=== PATIENT | male | born 1945 | race Caucasian/White ===

== ENCOUNTER 2020-09-09 12:06 | Inpatient (IN) | payer OTHER ==
[~2020-09-09] VITALS: Ht 182.9 cm; Wt 95.7 kg
[2020-09-09 12:45] LABS: BASOPHILS % (AUTO) 0.4 % (0.0-2.0); HEMATOCRIT 47.5 % (36.7-47.1); HEMOGLOBIN 16.1 g/dL (12.5-16.3); LYMPHOCYTES % (AUTO) 10.4 % (20.5-51.5); MEAN CORPUSCULAR HEMOGLOBIN 30.3 uug (23.8-33.4); MEAN CORPUSCULAR HGB CONC 34 g/dL (32.5-36.3); MEAN CORPUSCULAR VOLUME 89.3 fL (73.0-96.2); MONOCYTES # (AUTO) 0.5 K/uL (2.0-10.0); MONOCYTES % (AUTO) 4.7 % (0.0-11.0); NEUTROPHILS # (AUTO) 8.3 K/uL (1.8-8.9); NEUTROPHILS % (AUTO) 84.5 % (38.5-71.5); PLATELET COUNT (AUTO) 117 K/uL (152-348); RED BLOOD CELL COUNT(AUTO) 5.32 MIL/uL (4.06-5.63); WHITE BLOOD COUNT (AUTO) 9.9 K/uL (3.6-10.2)
[2020-09-09 12:50] LABS: CREATININE 1.3 mg/dL (0.6-1.3); POTASSIUM 4.1 mmol/L (3.5-5.1)
[2020-09-09 13:28] LABS: BILIRUBIN,TOTAL 0.8 mg/dL (0.2-1.0); TOTAL PROTEIN, SERUM 7.5 g/dL (6.4-8.2)
[2020-09-09] MEDS ORDERED: IV NORMAL SALINE 1000 ML BAG IV ONE (13:45)
[2020-09-09] MEDS ORDERED: DEXAMETHASONE SOD PHOSPHATE 4 MG INJ IV ONE (14:30)
[2020-09-09] MEDS ORDERED: DEXAMETHASONE SOD PHOSPHATE 10 MG INJ ONE (14:49)
--- NOTE | 2020-09-09 15:10 | NUR ---
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 Pt ok to admit to Tele dx: Briseyda KEANE +
[2020-09-09] MEDS ORDERED: ACETAMINOPHEN 325 MG TABLET PO PRN (15:15)
[2020-09-09] MEDS ORDERED: ALBUTEROL SULFATE 8 GM HFA.AER.AD IH PRN (15:15)
[2020-09-09] MEDS ORDERED: ACETAMINOPHEN 650 MG SUPP.RECT RC PRN (15:15)
[2020-09-09] MEDS ORDERED: ONDANSETRON 4 MG/2 ML VIAL IV PRN (15:15)
[2020-09-09] MEDS ORDERED: IV NS 1000 ML 1,000 ML IV PRN (15:30)
--- NOTE | 2020-09-09 16:00 | NUR ---
Belongings accounted for
--- NOTE | 2020-09-09 17:00 | NUR ---
Pt on Isolation precautions Pt on fall precautions Monitored accordingly Report givewn to Matt Ortiz.
--- NOTE | 2020-09-09 17:21 | NUR ---
[facility]HELLE [facility]
[2020-09-09] MEDS: AZITHROMYCIN IV 500 MG in IV DEXTROSE 5% 250 ML IV SCH (17:38)
[2020-09-09] MEDS: DEXAMETHASONE SOD PHOSPHATE 4 MG INJ IV SCH (17:38)
[2020-09-09] MEDS: APIXABAN 5 MG TABLET PO SCH (17:40)
--- NOTE | 2020-09-09 18:00 | NUR ---
Received in bed asleep arousable to name, AOx4, on O2 @ 2L, denied SOB or distress at this time. On tele AV pacing, HR-130-140, denied chest pain, dizziness and palpitations. Oriented to room and unit policy. IV on left AC flushed and patent. Safety precaution in place. No other complaints at this time
[2020-09-09 18:43] VITALS: BP 126/78
--- NOTE | 2020-09-09 20:00 | NUR ---
Received patient in bed. AAOx4. No s/s of acute distress noted. Pt on 2L NC, denies SOB. ekg monitor on exhibiting afib with HR fluctuating between 110-130. Pt denies CP, dizziness, and palpitations. Left AC IV patent and in place. Bed alarm on, safety measures in place along with COVID isolation precautions. Will continue to monitor.
[2020-09-09 21:21] VITALS: BP 109/62
[2020-09-10] VITALS (7 sets, daily range): BP systolic 110–133; BP diastolic 62–79
--- NOTE | 2020-09-10 04:03 | NUR ---
Pt exhibiting uncontrolled afib on the monitor. Called epic line and awaiting return call from Dr. Merritt. Addendum: 09/10/20 at 0455 by DAVID REECE RN second attempt, paged on-call awaiting response. Pt denies chest pain, palpitations, and dizziness. BP 140/77
--- NOTE | 2020-09-10 06:45 | NUR ---
Pt slept well. Afebrile. AAOx3. No s/s of acute distress noted. Pt on 2L NC, Denies SOB and CP. 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 Pt denies CP, dizziness, and palpitations. Left AC IV patent and intact. Safety measures and covid isolation precautions in place. will endorse to oncoming staff
[2020-09-10 07:45] LABS: BASOPHILS % (AUTO) 0.2 % (0.0-2.0); HEMATOCRIT 42.2 % (36.7-47.1); HEMOGLOBIN 14.2 g/dL (12.5-16.3); LYMPHOCYTES # (AUTO) 0.6 K/uL (20.0-40.0); LYMPHOCYTES % (AUTO) 16.6 % (20.5-51.5); MEAN CORPUSCULAR HGB CONC 34 g/dL (32.5-36.3); MEAN CORPUSCULAR VOLUME 89.5 fL (73.0-96.2); MONOCYTES # (AUTO) 0.2 K/uL (2.0-10.0); MONOCYTES % (AUTO) 6.4 % (0.0-11.0); NEUTROPHILS # (AUTO) 2.8 K/uL (1.8-8.9); NEUTROPHILS % (AUTO) 76.8 % (38.5-71.5); PLATELET COUNT (AUTO) 112 K/uL (152-348); RED BLOOD CELL COUNT(AUTO) 4.71 MIL/uL (4.06-5.63); WHITE BLOOD COUNT (AUTO) 3.6 K/uL (3.6-10.2)
[2020-09-10 08:04] LABS: BILIRUBIN,TOTAL 0.6 mg/dL (0.2-1.0); CREATININE 1.1 mg/dL (0.6-1.3); POTASSIUM 4.7 mmol/L (3.5-5.1); TOTAL PROTEIN, SERUM 6.5 g/dL (6.4-8.2)
[2020-09-10] MEDS ORDERED: DILTIAZEM HCL CD 120 MG CAP.SR.24H PO SCH (09:00)
[2020-09-10] MEDS: DEXAMETHASONE SOD PHOSPHATE 4 MG INJ IV SCH (09:12)
[2020-09-10] MEDS: APIXABAN 5 MG TABLET PO SCH ×2 (09:19→17:05)
[2020-09-10] MEDS: SODIUM BICARBONATE 8.4% 50 MEQ in IV D5 1/2 NS 1000 ML 1,000 ML IV PRN (12:02)
--- NOTE | 2020-09-10 13:44 | NUR ---
SEEN BY PHYSICAL THERAPY. TOLERATED THERAPY WELL. CURRENTLY ON ROOM AIR. DENIES PAIN OR SOB. NO S/S OF DISTRESS NOTED.
[2020-09-10] MEDS: AZITHROMYCIN IV 500 MG in IV DEXTROSE 5% 250 ML IV SCH (16:54)
[2020-09-10] MEDS ORDERED: DILTIAZEM HCL 25 MG IV IV ONE (21:30)
--- NOTE | 2020-09-10 22:00 | NUR ---
received report from yaw , received patient awake , oriented , able to follow command on RA, denies distress, iv with sodium bicarb running at 50 ml , HR 129 . bp of 117 / 79 oxygen saturation of 99 % , temp of 97.8, RR OF 23 , IV intact on lac, continent of urine
--- NOTE | 2020-09-10 22:05 | NUR ---
Patient transferred to CCU in care of ROMAN Lewis. Stable condition. Report given.
--- NOTE | 2020-09-10 22:50 | NUR ---
cardizem bous given , cardizem drip started at 5 mg /hr , HR 131 BP OF 123/65 . RR 23 oxygen saturation of 95 % ra
[2020-09-10] MEDS ORDERED: DILTIAZEM HCL 25 MG IV ONE ×2 (23:09→23:12)
[2020-09-10] MEDS ORDERED: DILTIAZEM HCL 50 MG IV ONE (23:12)
[2020-09-10] MEDS: DILTIAZEM HCL IV 125 MG in IV NORMAL SALINE 100 ML IV PRN (23:18)
[2020-09-11] VITALS (24 sets, daily range): BP systolic 108–137; BP diastolic 53–89
[2020-09-11] MEDS: SODIUM BICARBONATE 8.4% 50 MEQ in IV D5 1/2 NS 1000 ML 1,000 ML IV PRN ×3 (05:16→19:56)
[2020-09-11 05:19] LABS: BASOPHILS % (AUTO) 0.1 % (0.0-2.0); HEMATOCRIT 40.5 % (36.7-47.1); HEMOGLOBIN 13.7 g/dL (12.5-16.3); LYMPHOCYTES # (AUTO) 0.4 K/uL (20.0-40.0); LYMPHOCYTES % (AUTO) 6.5 % (20.5-51.5); MEAN CORPUSCULAR HEMOGLOBIN 30.3 uug (23.8-33.4); MEAN CORPUSCULAR HGB CONC 34 g/dL (32.5-36.3); MEAN CORPUSCULAR VOLUME 89.7 fL (73.0-96.2); MONOCYTES # (AUTO) 0.3 K/uL (2.0-10.0); MONOCYTES % (AUTO) 5.7 % (0.0-11.0); NEUTROPHILS # (AUTO) 4.9 K/uL (1.8-8.9); NEUTROPHILS % (AUTO) 87.7 % (38.5-71.5); PLATELET COUNT (AUTO) 163 K/uL (152-348); RED BLOOD CELL COUNT(AUTO) 4.51 MIL/uL (4.06-5.63); WHITE BLOOD COUNT (AUTO) 5.6 K/uL (3.6-10.2)
--- NOTE | 2020-09-11 06:00 | NUR ---
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
[2020-09-11 06:09] LABS: MAGNESIUM 2.3 mg/dL (1.8-2.4); PHOSPHOROUS 2.2 mg/dL (2.5-4.9); POTASSIUM 3.7 mmol/L (3.5-5.1)
--- NOTE | 2020-09-11 07:30 | NUR ---
titrate down cardizem drip while continuing po cardizem per doctor freddy.
--- NOTE | 2020-09-11 07:35 | NUR ---
dr hayes baker test made aware cardizem iv has been stopped due to no iv line , waiting for picc / mid line nurse , patient gets a oral cardizem
[2020-09-11] MEDS: DEXAMETHASONE SOD PHOSPHATE 4 MG INJ IV SCH (08:13)
[2020-09-11] MEDS: APIXABAN 5 MG TABLET PO SCH ×2 (08:46→16:54)
[2020-09-11] MEDS ORDERED: DILTIAZEM HCL CD 120 MG CAP.SR.24H PO SCH (09:00)
--- NOTE | 2020-09-11 09:00 | NUR ---
DR SAUCEDA IN UNIT TO SEE PATIENT.
[2020-09-11] MEDS ORDERED: REMDESIVIR (CHARGED) 200 MG in IV NORMAL SALINE 210 ML IV ONE (13:00)
--- NOTE | 2020-09-11 14:00 | NUR ---
nephro came for consultation.
[2020-09-11] MEDS: DILTIAZEM HCL IV 125 MG in IV NORMAL SALINE 100 ML IV PRN (14:06)
[2020-09-11] MEDS: CEFTRIAXONE 1 G in IV DEXTROSE 5% 50 ML IV SCH (15:03)
--- NOTE | 2020-09-11 16:00 | NUR ---
KESHIA LOCKHART CONSULTATION FOR ID. PLEASE SEE ORDER HISTORY FOR NEW ORDERS. PATIENT WILL START ON REMEDESIVIR.
[2020-09-11] MEDS: AZITHROMYCIN IV 500 MG in IV DEXTROSE 5% 250 ML IV SCH (16:53)
--- NOTE | 2020-09-11 18:15 | NUR ---
DOCTOR LYDIA TO CALL IN AM AND WILL ORDER PHOS REPLACEMENT AND BLOOD SUGAR CHECKS LATER BUT IS AWARE.
[2020-09-11] MEDS ORDERED: POTASSIUM PHOSPHATE MM 7.5 MMOL in IV NORMAL SALINE 97.5 ML IV ONE (19:00)
[2020-09-11] MEDS: DILTIAZEM HCL CD 120 MG CAP.SR.24H PO SCH (20:02)
[2020-09-12] VITALS (11 sets, daily range): BP systolic 103–142; BP diastolic 59–85
[2020-09-12 05:55] LABS: BASOPHILS % (AUTO) 0.1 % (0.0-2.0); HEMATOCRIT 37.8 % (36.7-47.1); HEMOGLOBIN 12.9 g/dL (12.5-16.3); LYMPHOCYTES # (AUTO) 0.7 K/uL (20.0-40.0); LYMPHOCYTES % (AUTO) 16.8 % (20.5-51.5); MEAN CORPUSCULAR HEMOGLOBIN 30.7 uug (23.8-33.4); MEAN CORPUSCULAR HGB CONC 34 g/dL (32.5-36.3); MEAN CORPUSCULAR VOLUME 89.7 fL (73.0-96.2); MONOCYTES # (AUTO) 0.4 K/uL (2.0-10.0); MONOCYTES % (AUTO) 11.4 % (0.0-11.0); NEUTROPHILS # (AUTO) 2.8 K/uL (1.8-8.9); NEUTROPHILS % (AUTO) 71.7 % (38.5-71.5); PLATELET COUNT (AUTO) 171 K/uL (152-348); RED BLOOD CELL COUNT(AUTO) 4.21 MIL/uL (4.06-5.63)
[2020-09-12 06:47] LABS: BILIRUBIN,DIRECT 0.2 mg/dL (0.0-0.2); BILIRUBIN,TOTAL 0.6 mg/dL (0.2-1.0); CREATININE 0.8 mg/dL (0.6-1.3); POTASSIUM 3.8 mmol/L (3.5-5.1); TOTAL PROTEIN, SERUM 6.4 g/dL (6.4-8.2)
--- NOTE | 2020-09-12 07:35 | NUR ---
Telphone report given to attending M.D. orders to downgrade pt. to telemetry received.
--- NOTE | 2020-09-12 08:00 | NUR ---
Telephone report given to Arturo White. 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 Patient left AAOx4.
[2020-09-12] MEDS: DEXAMETHASONE SOD PHOSPHATE 4 MG INJ IV SCH (09:00)
[2020-09-12] MEDS: DILTIAZEM HCL CD 240 MG CAP.SR.24H PO SCH (09:00)
[2020-09-12] MEDS: APIXABAN 5 MG TABLET PO SCH ×2 (09:00→17:45)
[2020-09-12 11:34] LABS: MAGNESIUM 2.4 mg/dL (1.8-2.4); PHOSPHOROUS 3.1 mg/dL (2.5-4.9)
[2020-09-12] MEDS: CEFTRIAXONE 1 G in IV DEXTROSE 5% 50 ML IV SCH (13:14)
[2020-09-12] MEDS: REMDESIVIR (CHARGED) 100 MG in IV NORMAL SALINE 230 ML IV SCH (14:05)
[2020-09-12] MEDS: METOPROLOL TARTRATE 25 MG TABLET PO SCH ×2 (14:45→21:18)
[2020-09-12] MEDS: SODIUM BICARBONATE 8.4% 50 MEQ in IV D5 1/2 NS 1000 ML 1,000 ML IV PRN (14:52)
--- NOTE | 2020-09-12 15:00 | NUR ---
RECEIVED PT AWAKE, ALERT AND ORIENTEDX4. PT ON 2L NASAL CANNULA.IV INTACT. PT HAS REDNESS AND SKIN TEAR ON RIGHT HIP. SAFETY AND COMFORT PROVIDED. WILL CONTINUE TO MONITOR.
--- NOTE | 2020-09-12 15:25 | NUR ---
PT STABLE THROUGHOUT THE SHIFT. V/S STABLE ON 2L NC TOLERATING WELL. CONTROLLED AFIB 80 ON TELE MONITOR. PT CURRENTLY RECEIVING REMDEZEVIR. COMFORT CARE AND NEEDS ATTENDED. SAFETY MEASURES IN PLACE. CALL LIGHT WITHIN REACH. WILL ENDORSE TO ONCOMING NURSE.
[2020-09-12] MEDS: AZITHROMYCIN IV 500 MG in IV DEXTROSE 5% 250 ML IV SCH (16:46)
[2020-09-12] MEDS: DILTIAZEM HCL CD 120 MG CAP.SR.24H PO SCH (21:18)
[2020-09-13 00:49] VITALS: BP 121/77
[2020-09-13] MEDS: SODIUM BICARBONATE 8.4% 50 MEQ in IV D5 1/2 NS 1000 ML 1,000 ML IV PRN ×2 (03:01→18:15)
[2020-09-13] MEDS: DEXAMETHASONE SOD PHOSPHATE 4 MG INJ IV SCH (03:01)
[2020-09-13 05:53] VITALS: BP 128/65
[2020-09-13] MEDS: METOPROLOL TARTRATE 25 MG TABLET PO SCH ×3 (05:56→22:27)
--- NOTE | 2020-09-13 06:42 | NUR ---
PT IN NO ACUTE DISTRESS. IV INTACT. NASAL CANNULA ON 2L OXYGEN. PRESCRIBED MEDICATION GIVEN AND PT TOLERATED IT WELL. SAFETY AND COMFORT PROVIDED. WILL ENDORSE TO INCOMING NURSE FOR CONTINUITY OF CARE.
[2020-09-13 07:18] LABS: BASOPHILS % (AUTO) 0.1 % (0.0-2.0); HEMATOCRIT 36.5 % (36.7-47.1); HEMOGLOBIN 12.7 g/dL (12.5-16.3); LYMPHOCYTES # (AUTO) 0.4 K/uL (20.0-40.0); LYMPHOCYTES % (AUTO) 11.5 % (20.5-51.5); MEAN CORPUSCULAR HGB CONC 35 g/dL (32.5-36.3); MEAN CORPUSCULAR VOLUME 89.1 fL (73.0-96.2); MONOCYTES # (AUTO) 0.4 K/uL (2.0-10.0); MONOCYTES % (AUTO) 10.9 % (0.0-11.0); NEUTROPHILS # (AUTO) 2.9 K/uL (1.8-8.9); NEUTROPHILS % (AUTO) 77.5 % (38.5-71.5); PLATELET COUNT (AUTO) 186 K/uL (152-348); RED BLOOD CELL COUNT(AUTO) 4.09 MIL/uL (4.06-5.63); WHITE BLOOD COUNT (AUTO) 3.7 K/uL (3.6-10.2)
--- NOTE | 2020-09-13 07:30 | NUR ---
Received patient in bed awake alert and oriented times 4. No sign of distress noted at this time. No SOB noted. Patient is in Covid 19 isolation. Safety precautions in place with call light and belongings within reach. Will continue to monitor.
[2020-09-13 07:35] LABS: BILIRUBIN,DIRECT 0.2 mg/dL (0.0-0.2); BILIRUBIN,TOTAL 0.6 mg/dL (0.2-1.0); CREATININE 0.8 mg/dL (0.6-1.3); POTASSIUM 4.1 mmol/L (3.5-5.1); TOTAL PROTEIN, SERUM 6.1 g/dL (6.4-8.2)
[2020-09-13] MEDS: DILTIAZEM HCL CD 240 MG CAP.SR.24H PO SCH (08:54)
[2020-09-13] MEDS: APIXABAN 5 MG TABLET PO SCH ×2 (08:57→17:34)
[2020-09-13 11:54] VITALS: BP 131/65
[2020-09-13] MEDS: CHOLECALCIFEROL 1,000 UNIT TABLET PO SCH (12:34)
[2020-09-13] MEDS: ASCORBIC ACID 500 MG TABLET PO SCH ×2 (12:34→20:40)
[2020-09-13] MEDS: CEFTRIAXONE 1 G in IV DEXTROSE 5% 50 ML IV SCH (14:16)
--- NOTE | 2020-09-13 14:18 | NUR ---
Rocephin and Remdezivir brought to unit late by pharmacy. Will infuse and continue to monitor.
[2020-09-13] MEDS: REMDESIVIR (CHARGED) 100 MG in IV NORMAL SALINE 230 ML IV SCH (15:07)
--- NOTE | 2020-09-13 15:10 | NUR ---
Vital sign at the start of the infusion of Rem dezivir was 131/65, HR 70 and temperature is 98.2 with a pulse oximetry of 96%. At the end of infusion vital sign is 124/74 53. Patient tolerated infusion well. Will continue to monitor.
[2020-09-13 16:20] VITALS: BP 120/65
[2020-09-13] MEDS ORDERED: DEXTROSE 50% 50 ML DISP.SYRIN IV PRN (18:00)
--- NOTE | 2020-09-13 19:04 | NUR ---
Patient is resting in bed. No sign of distress noted. Gave all medications at this time. Safety precautions in place with call light and belongings within reach. Will endorse to oncoming nurse.
--- NOTE | 2020-09-13 19:05 | NUR ---
RECEIVED PT AWAKE, ALERT AND ORIENTEDX3. PT IN O ACUTE DISTRESS. IV INTACT. PT ON 2L NASAL CANNULA. SAFETY AND COMFORT PROVIDED. WILL CONTINUE TO MONITOR.
[2020-09-13 20:00] VITALS: BP 129/69
[2020-09-13] MEDS: DILTIAZEM HCL CD 120 MG CAP.SR.24H PO SCH (20:40)
[2020-09-13 23:59] VITALS: BP 129/75
[2020-09-14 04:20] VITALS: BP 118/76
[2020-09-14] MEDS: METOPROLOL TARTRATE 25 MG TABLET PO SCH ×3 (06:11→22:08)
--- NOTE | 2020-09-14 06:19 | NUR ---
PT SLEPT INTERMITTENTLY. PT IN NO RESPIRATORY DISTRESS. IV INTACT. PRESCRIBED MEDICATION GIVEN AND PT TOLERATED IT WELL. PT AFEBRILE. PT PICC LINE -2 LUMEN IS HARD TO FLUSH WHILE THE ONLY ONE IS FLUSHING WELL. CHARGE NURSE AWARE. SAFETY AND COMFORT PROVIDED. ALL NEEDS ARE MET. WILL ENDORSE TO INCOMING NURSE FOR CONTINUITY OF CARE.
[2020-09-14] MEDS: BLOOD SUGAR DIAGNOSTIC 1 EACH STRIP VI SCH ×4 (06:40→20:28)
[2020-09-14] MEDS: SODIUM BICARBONATE 8.4% 50 MEQ in IV D5 1/2 NS 1000 ML 1,000 ML IV PRN (06:43)
[2020-09-14 07:03] LABS: BASOPHILS % (AUTO) 0.1 % (0.0-2.0); HEMATOCRIT 34.9 % (36.7-47.1); HEMOGLOBIN 12.2 g/dL (12.5-16.3); LYMPHOCYTES # (AUTO) 0.5 K/uL (20.0-40.0); LYMPHOCYTES % (AUTO) 9.8 % (20.5-51.5); MEAN CORPUSCULAR HEMOGLOBIN 31.6 uug (23.8-33.4); MEAN CORPUSCULAR HGB CONC 35 g/dL (32.5-36.3); MEAN CORPUSCULAR VOLUME 90.7 fL (73.0-96.2); MONOCYTES # (AUTO) 0.4 K/uL (2.0-10.0); MONOCYTES % (AUTO) 8.4 % (0.0-11.0); NEUTROPHILS # (AUTO) 4.1 K/uL (1.8-8.9); NEUTROPHILS % (AUTO) 81.7 % (38.5-71.5); PLATELET COUNT (AUTO) 199 K/uL (152-348); RED BLOOD CELL COUNT(AUTO) 3.85 MIL/uL (4.06-5.63)
[2020-09-14 07:29] LABS: BILIRUBIN,DIRECT 0.2 mg/dL (0.0-0.2); BILIRUBIN,TOTAL 0.6 mg/dL (0.2-1.0); CREATININE 0.7 mg/dL (0.6-1.3); PHOSPHOROUS 2.6 mg/dL (2.5-4.9); TOTAL PROTEIN, SERUM 5.9 g/dL (6.4-8.2)
[2020-09-14] MEDS: INSULIN REGULAR, HUMAN 300 UNIT/3 ML VIAL SQ PRN ×3 (08:39→17:22)
[2020-09-14] MEDS: CHOLECALCIFEROL 1,000 UNIT TABLET PO SCH (09:20)
[2020-09-14] MEDS: ASCORBIC ACID 500 MG TABLET PO SCH ×2 (09:20→20:21)
[2020-09-14] MEDS: DILTIAZEM HCL CD 240 MG CAP.SR.24H PO SCH (09:21)
[2020-09-14] MEDS: DEXAMETHASONE SOD PHOSPHATE 4 MG INJ IV SCH (09:21)
[2020-09-14] MEDS: APIXABAN 5 MG TABLET PO SCH ×2 (09:24→17:22)
[2020-09-14 12:00] VITALS: BP 116/64
[2020-09-14] MEDS: CEFTRIAXONE 1 G in IV DEXTROSE 5% 50 ML IV SCH (12:28)
[2020-09-14] MEDS: REMDESIVIR (CHARGED) 100 MG in IV NORMAL SALINE 230 ML IV SCH (14:14)
--- NOTE | 2020-09-14 14:30 | NUR ---
SEEN BY PHYSICAL THERAPY. TOLERATED PHYSICAL THERAPY FAIRLY WELL.
--- NOTE | 2020-09-14 14:32 | NUR ---
TOLERATING REMDESIVIR IV INFUSION - BP 126/66, HR 83, 96% ON 2L O2. DENIES PAIN. NO S/S OF DISTRESS NOTED.
[2020-09-14 16:00] VITALS: BP 120/67
--- NOTE | 2020-09-14 19:00 | NUR ---
Received patient from AM nurse. VSS. Safety measures in place. Will continue to monitor and assess.
[2020-09-14 20:00] VITALS: BP 158/65
[2020-09-14] MEDS: DILTIAZEM HCL CD 120 MG CAP.SR.24H PO SCH (20:30)
[2020-09-14] MEDS: INSULIN GLARGINE,HUM 300 UNITS/3 ML CARTRIDGE SQ SCH (23:52)
[2020-09-15 00:58] VITALS: BP 115/61
[2020-09-15 04:45] VITALS: BP 120/65
[2020-09-15] MEDS: METOPROLOL TARTRATE 25 MG TABLET PO SCH ×3 (05:59→21:23)
--- NOTE | 2020-09-15 06:41 | NUR ---
Patient handed to AM nurse at shift change. VSS. Stable condition. No distress. Will endorse all information to AM nurse.
[2020-09-15] MEDS: BLOOD SUGAR DIAGNOSTIC 1 EACH STRIP VI SCH ×4 (06:52→21:23)
[2020-09-15 06:57] LABS: BASOPHILS % (AUTO) 1.2 % (0.0-2.0); HEMATOCRIT 37.3 % (36.7-47.1); HEMOGLOBIN 12.8 g/dL (12.5-16.3); LYMPHOCYTES # (AUTO) 0.5 K/uL (20.0-40.0); LYMPHOCYTES % (AUTO) 13.9 % (20.5-51.5); MEAN CORPUSCULAR HEMOGLOBIN 30.8 uug (23.8-33.4); MEAN CORPUSCULAR HGB CONC 34 g/dL (32.5-36.3); MEAN CORPUSCULAR VOLUME 89.9 fL (73.0-96.2); MONOCYTES # (AUTO) 0.3 K/uL (2.0-10.0); MONOCYTES % (AUTO) 6.9 % (0.0-11.0); PLATELET COUNT (AUTO) 247 K/uL (152-348); RED BLOOD CELL COUNT(AUTO) 4.15 MIL/uL (4.06-5.63); WHITE BLOOD COUNT (AUTO) 3.9 K/uL (3.6-10.2)
[2020-09-15 07:15] LABS: BILIRUBIN,DIRECT 0.2 mg/dL (0.0-0.2); BILIRUBIN,TOTAL 0.6 mg/dL (0.2-1.0); CREATININE 0.6 mg/dL (0.6-1.3); MAGNESIUM 2.1 mg/dL (1.8-2.4); PHOSPHOROUS 3.2 mg/dL (2.5-4.9); TOTAL PROTEIN, SERUM 6.1 g/dL (6.4-8.2)
[2020-09-15] MEDS: DEXAMETHASONE SOD PHOSPHATE 4 MG INJ IV SCH (08:49)
[2020-09-15] MEDS: DILTIAZEM HCL CD 240 MG CAP.SR.24H PO SCH (08:50)
[2020-09-15] MEDS: CHOLECALCIFEROL 1,000 UNIT TABLET PO SCH (08:50)
[2020-09-15] MEDS: ASCORBIC ACID 500 MG TABLET PO SCH ×2 (08:52→21:06)
[2020-09-15] MEDS: APIXABAN 5 MG TABLET PO SCH ×2 (08:52→16:47)
[2020-09-15] MEDS: INSULIN REGULAR, HUMAN 300 UNIT/3 ML VIAL SQ PRN ×4 (08:58→21:27)
[2020-09-15 12:00] VITALS: BP 118/62
--- NOTE | 2020-09-15 12:18 | NUR ---
MD ordered to evaluate if the patient able to tolerate/sustain o2 saturation even without O2 inhalation, patient instucted to try remove his O2 and evaluate his saturation , patient maintained 95% at room air, MD aware,
[2020-09-15] MEDS: CEFTRIAXONE 1 G in IV DEXTROSE 5% 50 ML IV SCH (13:27)
[2020-09-15] MEDS ORDERED: DEXA6TAB6 PO (13:50)
[2020-09-15] MEDS ORDERED: APIX5TAB PO (13:50)
[2020-09-15] MEDS ORDERED: AMOX-430 PO (13:50)
[2020-09-15] MEDS ORDERED: DILT120C87 PO (13:50)
[2020-09-15] MEDS ORDERED: Insulin Glargine,Hum SQ (13:50)
[2020-09-15] MEDS ORDERED: METO25TA6 PO (13:50)
[2020-09-15] MEDS ORDERED: INSU100V7 SQ (13:51)
[2020-09-15] MEDS: REMDESIVIR (CHARGED) 100 MG in IV NORMAL SALINE 230 ML IV SCH (15:05)
[2020-09-15 16:00] VITALS: BP 133/71
--- NOTE | 2020-09-15 18:18 | NUR ---
Patient has a discharge order on hold , since the filed to hold the DC order, patient and MD aware, no distress at this time
[2020-09-15 20:15] VITALS: BP 109/75
--- NOTE | 2020-09-15 20:25 | NUR ---
Received patient in bed .AALOX4 with O2 at 2LPM via NC saturating at 95%.No s/s of distress noted.Denies SOB or pain.Picc line on right upper arm patent and intact.Received call from Patient's ,stated her is not ready to be discharged and she further stated she will call back in A.M to talk to [facility].Proper PPE strictly observed for covid.Will continue to monitor .Call light with in reach.
[2020-09-15] MEDS: DILTIAZEM HCL CD 120 MG CAP.SR.24H PO SCH (21:22)
[2020-09-15] MEDS: INSULIN GLARGINE,HUM 300 UNITS/3 ML CARTRIDGE SQ SCH (21:27)
[2020-09-16] VITALS (8 sets, daily range): BP systolic 113–149; BP diastolic 62–77
[2020-09-16] MEDS: METOPROLOL TARTRATE 25 MG TABLET PO SCH ×3 (05:32→21:20)
[2020-09-16] MEDS: BLOOD SUGAR DIAGNOSTIC 1 EACH STRIP VI SCH ×4 (06:37→21:21)
--- NOTE | 2020-09-16 06:38 | NUR ---
Patient slept well.No acute distress noted through out the shift.Compliant with medications and care.Will endorse to oncoming shift.
[2020-09-16] MEDS: INSULIN REGULAR, HUMAN 300 UNIT/3 ML VIAL SQ PRN ×4 (08:15→21:27)
--- NOTE | 2020-09-16 09:19 | NUR ---
Patient placed on RA and saturating 94% at this time. Denied any SOB or distress, stating "I feel fine." Will continue to monitor
[2020-09-16] MEDS: CHOLECALCIFEROL 1,000 UNIT TABLET PO SCH (09:47)
[2020-09-16] MEDS: ASCORBIC ACID 500 MG TABLET PO SCH ×2 (09:47→21:20)
[2020-09-16] MEDS: DEXAMETHASONE SOD PHOSPHATE 4 MG INJ IV SCH (09:48)
[2020-09-16] MEDS: DILTIAZEM HCL CD 240 MG CAP.SR.24H PO SCH (09:48)
[2020-09-16] MEDS: APIXABAN 5 MG TABLET PO SCH ×2 (09:55→17:14)
[2020-09-16] MEDS: CEFTRIAXONE 1 G in IV DEXTROSE 5% 50 ML IV SCH (14:19)
[2020-09-16] MEDS: DILTIAZEM HCL CD 120 MG CAP.SR.24H PO SCH (21:20)
[2020-09-16] MEDS: INSULIN GLARGINE,HUM 300 UNITS/3 ML CARTRIDGE SQ SCH (21:28)
[2020-09-17 00:09] VITALS: BP 114/62
[2020-09-17 04:18] VITALS: BP 112/62
--- NOTE | 2020-09-17 05:11 | NUR ---
PATIENT IS IN BED, ASLEEP. REMAINS ON ROOM AIR, TOLERATED WELL. NO SHORTNESS OF BREATH. RESPIRATIONS EVEN AND UNLABORED. PATIENT RECEIVED ALL DUE MEDICATIONS, TOLERATED WELL. ALL NEEDS ATTENDED. WILL CONTINUE TO MONITOR PATIENT. FALL AND SAFETY PRECAUTIONS OBSERVED.
[2020-09-17] MEDS: METOPROLOL TARTRATE 25 MG TABLET PO SCH (06:31)
[2020-09-17] MEDS: BLOOD SUGAR DIAGNOSTIC 1 EACH STRIP VI SCH (06:35)
[2020-09-17 07:40] LABS: BASOPHILS % (AUTO) 0.7 % (0.0-2.0); HEMATOCRIT 34.7 % (36.7-47.1); HEMOGLOBIN 12.6 g/dL (12.5-16.3); LYMPHOCYTES # (AUTO) 0.6 K/uL (20.0-40.0); LYMPHOCYTES % (AUTO) 8.3 % (20.5-51.5); MEAN CORPUSCULAR HEMOGLOBIN 34.4 uug (23.8-33.4); MEAN CORPUSCULAR HGB CONC 36 g/dL (32.5-36.3); MONOCYTES # (AUTO) 0.3 K/uL (2.0-10.0); MONOCYTES % (AUTO) 3.9 % (0.0-11.0); NEUTROPHILS % (AUTO) 87.1 % (38.5-71.5); PLATELET COUNT (AUTO) 265 K/uL (152-348); RED BLOOD CELL COUNT(AUTO) 3.66 MIL/uL (4.06-5.63); WHITE BLOOD COUNT (AUTO) 6.9 K/uL (3.6-10.2)
[2020-09-17 08:00] VITALS: BP 107/65
[2020-09-17] MEDS: INSULIN REGULAR, HUMAN 300 UNIT/3 ML VIAL SQ PRN (08:18)
[2020-09-17 08:29] LABS: CREATININE 0.7 mg/dL (0.6-1.3); POTASSIUM 3.5 mmol/L (3.5-5.1)
[2020-09-17] MEDS: ASCORBIC ACID 500 MG TABLET PO SCH (09:45)
[2020-09-17] MEDS: CHOLECALCIFEROL 1,000 UNIT TABLET PO SCH (09:45)
[2020-09-17 09:46] VITALS: BP 107/65
[2020-09-17] MEDS: DILTIAZEM HCL CD 240 MG CAP.SR.24H PO SCH (09:46)
[2020-09-17] MEDS: DEXAMETHASONE SOD PHOSPHATE 4 MG INJ IV SCH (09:46)
[2020-09-17] MEDS: APIXABAN 5 MG TABLET PO SCH (09:53)
[2020-09-17] MEDS ORDERED: DILT240C88 PO (10:33)
[2020-09-17] MEDS ORDERED: ASCO500T21 PO (10:33)
--- NOTE | 2020-09-17 10:45 | NUR ---
Patient DC to home via ambulance, awake AOx4, very grateful for care. On RA no SOB or distress at this time. Denied any chest pain. PICC line 48cm length removed, no s/s of bleeding, tolerated well. ID bands removed. Cleaned and took picture of right hip abrasion. DC instructions with prescription given to EMT personnel. All belongings list accounted for
[2020-09-17] MEDS ORDERED: LANC-576 MC (12:23)
[2020-09-17] MEDS ORDERED: BLOO1EAC70 MC (12:23)
[2020-09-17] MEDS ORDERED: SYRI1DIS86 MC (12:23)
== END 2020-09-17 10:45 | disposition home or self-care (01) | DRG 871 ==
LOC: ER 12:06 → TELE3 15:58 → CCU 09-10 22:00 → MEDSURG3 09-12 09:13 → TELE3 09-12 18:43
PROVIDERS: ADMIT Nurse Practitioner Acute Care; ATTEND Nurse Practitioner Acute Care
PROC: XW033E5 Introduction of Remdesivir Anti-infective into Peripheral Vein, Percutaneous Approach, New Technology Group 5 (ICD-10-PCS; principal; 2020-09-11)
PROC: 02HV33Z Insertion of Infusion Device into Superior Vena Cava, Percutaneous Approach (ICD-10-PCS; 2020-09-11)
PROC: B548ZZA Ultrasonography of Superior Vena Cava, Guidance (ICD-10-PCS; 2020-09-11)
DX: A41.89 Other specified sepsis (principal); U07.1 COVID-19; J12.89 Other viral pneumonia; E43 Unspecified severe protein-calorie malnutrition; G92 Toxic encephalopathy; I21.A1 Myocardial infarction type 2; J96.01 Acute respiratory failure with hypoxia; N17.0 Acute kidney failure with tubular necrosis; M62.82 Rhabdomyolysis; E87.2 Acidosis; Q24.0 Dextrocardia; D68.69 Other thrombophilia; I48.20 Chronic atrial fibrillation, unspecified; E86.0 Dehydration; M19.90 Unspecified osteoarthritis, unspecified site; Z95.0 Presence of cardiac pacemaker; R53.1 Weakness; Z85.038 Personal history of other malignant neoplasm of large intestine; I11.0 Hypertensive heart disease with heart failure; I50.9 Heart failure, unspecified; E11.65 Type 2 diabetes mellitus with hyperglycemia; Z79.4 Long term (current) use of insulin; Z68.28 Body mass index [BMI] 28.0-28.9, adult
CPT/HCPCS: 36415; 70030-TC; 71045; 72170; 73502; 83605; 83615; 83735; 84100; 85025; 85610; 85730; 86140; 86850; 86900; 86901; 87040; 87070; 93005; A4663; G0378; J0456; J0696; J1100; J1815; J3490; J3535; J7030; J7040; J7050; J7060

== ENCOUNTER 2022-06-17 13:47 | Inpatient (IN) | payer OTHER ==
[~2022-06-17] VITALS: Ht 182.9 cm; Wt 80.3 kg
[~2022-06-17 13:47] MED LIST: APIX5TAB PO; ASCO500T21 PO; BLOO1EAC70 MC; DEXA6TAB6 PO; DILT240C88 PO; INSU100V7 SQ; LANC-576 MC; METO25TA6 PO; SYRI1DIS86 MC
[2022-06-17] MEDS ORDERED: IV NORMAL SALINE 1000 ML BAG IV ONE (14:00)
[2022-06-17 14:46] LABS: HEMATOCRIT 30.5 % (36.7-47.1); MEAN CORPUSCULAR HEMOGLOBIN 29.3 uug (23.8-33.4); MEAN CORPUSCULAR VOLUME 85.7 fL (73.0-96.2); PLATELET COUNT (AUTO) 254 K/uL (152-348)
[2022-06-17 15:00] LABS: ALANINE AMINOTRANSFERASE 27 U/L (16-63); ALKALINE PHOSPHATASE 86 U/L (50-136); ASPARTATE AMINOTRANSFERASE 10 U/L (15-37); BILIRUBIN,DIRECT 0.1 mg/dL (0.0-0.2); BILIRUBIN,TOTAL 0.6 mg/dL (0.2-1.0); CARBON DIOXIDE 19 mmol/L (21-32); CHLORIDE 105 mmol/L (98-107); CREATININE 3.1 mg/dL (0.6-1.3); GLUCOSE 252 mg/dL (74-106); POTASSIUM 3.9 mmol/L (3.5-5.1); TOTAL PROTEIN, SERUM 7.4 g/dL (6.4-8.2)
[2022-06-17] MEDS ORDERED: VANCOMYCIN 1G/D5W 200 ML PIGGYBACK IV ONE (15:00)
[2022-06-17] MEDS ORDERED: PIPERACILLIN SODIUM/TAZOBACTAM 3.375 G in IV DEXTROSE 5% 50 ML IV ONE (15:00)
[2022-06-17] MEDS ORDERED: PIPERACILLIN/TAZOBACTAM/D5W 50 ML IV ONE (15:03)
[2022-06-17 15:19] LABS: UREA NITROGEN, BLOOD 95 mg/dL (7-18)
[2022-06-17 15:23] LABS: *BILIRUBIN,URIN NEGATIVE (NEGATIVE); *BLOOD, URINE 3+ (NEGATIVE); *CLARITY,URINE SLIGHTLY CLOUDY (CLEAR); *COLOR,URINE YELLOW (YELLOW); *KETONES,URINE NEGATIVE (NEGATIVE); *UROBILINOGEN,URINE 0.2 E.U./dl (NORMAL); LEUKOCYTE ESTERASE ,URINE TRACE (NEGATIVE); NITRITE, URINE NEGATIVE (NEGATIVE); PH,URINE 5.5 (5.0-8.0); UGLUCOSE NEGATIVE (NEGATIVE)
--- NOTE | 2022-06-17 15:45 | NUR ---
Inserted muhammad catheter into patient. Urine is brown with dark brown sediment. 2500mL output. Urine sample sent to lab
[2022-06-17] MEDS ORDERED: VANCOMYCIN IV 200 ML ONE (15:53)
[2022-06-17] MEDS ORDERED: ONDANSETRON 4 MG/2 ML VIAL IV PRN (16:00)
[2022-06-17] MEDS ORDERED: DEXTROSE 50% 50 ML DISP.SYRIN IV PRN (16:00)
[2022-06-17] MEDS ORDERED: MAGNESIUM HYDROXIDE 30 ML LIQUID UDC PO PRN (16:00)
[2022-06-17] MEDS ORDERED: REMEDY ESSENTIAL ZINC PASTE 113 GM TP PRN (16:00)
[2022-06-17] MEDS ORDERED: ACETAMINOPHEN 325 MG TABLET PO PRN (16:00)
[2022-06-17] MEDS ORDERED: IV LACTATED RINGERS SOLUTION 1,000 ML BAG IV ONE (16:00)
[2022-06-17 16:24] LABS: BACTERIA,URINE FEW /HPF (NONE SEEN); RBC,URINE 20-50 /HPF (0-3); SQUAMOUS EPITHELIAL CELL,UR MANY /HPF (NONE SEEN); URINE AMORPHOUS URATE FEW /HPF
[2022-06-17] MEDS: BLOOD SUGAR DIAGNOSTIC 1 EACH STRIP VI SCH ×2 (16:30→21:45)
[2022-06-17] MEDS ORDERED: INSULIN REGULAR, HUMAN 300 UNIT/3 ML VIAL ONE (18:16)
[2022-06-17] MEDS: INSULIN REGULAR, HUMAN 300 UNIT/3 ML VIAL SQ PRN (18:19)
--- NOTE | 2022-06-17 18:54 | NUR ---
Per Dr. Merritt, patient is to be admitted to telemetry.
[2022-06-17] MEDS ORDERED: METF-440 PO (19:14)
[2022-06-17] MEDS ORDERED: POTA-194 PO (19:14)
[2022-06-17] MEDS ORDERED: DIGO125T PO (19:14)
[2022-06-17] MEDS ORDERED: ATOR20TA PO (19:14)
[2022-06-17] MEDS ORDERED: LINA5TAB PO (19:14)
[2022-06-17] MEDS ORDERED: TAMS-3 PO (19:14)
[2022-06-17] MEDS ORDERED: DILT180C66 PO (19:16)
[2022-06-17] MEDS ORDERED: TRAZ-182 PO (19:16)
[2022-06-17] MEDS ORDERED: ALLO100T PO (19:16)
[2022-06-17] MEDS ORDERED: METO100T14 PO (19:16)
[2022-06-17] MEDS ORDERED: FURO20TA4 PO (19:17)
[2022-06-17] MEDS ORDERED: FERR325T28 PO (19:17)
--- NOTE | 2022-06-17 19:30 | NUR ---
Change of shift report from Pat OWENS
[2022-06-17 20:00] VITALS: BP 128/63
--- NOTE | 2022-06-17 20:12 | NUR ---
patient will be admitted room 304 TELE
--- NOTE | 2022-06-17 20:30 | NUR ---
called 3rd floor to give report. Andrew OWENS will call back
--- NOTE | 2022-06-17 20:47 | NUR ---
report given to Andrew OWENS
[2022-06-17 21:00] VITALS: BP 128/63
[2022-06-17] MEDS ORDERED: METFORMIN HCL 500 MG TABLET PO SCH (21:00)
[2022-06-17] MEDS ORDERED: METOPROLOL TARTRATE 50 MG TABLET PO SCH ×2 (21:00→22:00)
[2022-06-17] MEDS ORDERED: METOPROLOL TARTRATE 200 MG PO SCH (21:00)
[2022-06-17] MEDS: CEFTRIAXONE 1 G in IV DEXTROSE 5% 50 ML IV SCH (21:32)
[2022-06-17] MEDS: IV NS 1000 ML 1,000 ML IV PRN (21:34)
[2022-06-17] MEDS: DILTIAZEM HCL CD 180 MG CAP.SR.24H PO SCH (21:49)
[2022-06-17] MEDS: TRAZODONE 50 MG TABLET PO SCH (21:49)
[2022-06-17] MEDS: TAMSULOSIN HCL 0.4 MG CAP.SR.24H PO SCH (21:50)
[2022-06-17] MEDS: ATORVASTATIN 20 MG TABLET PO SCH (21:52)
[2022-06-17] MEDS: APIXABAN 5 MG TABLET PO SCH (21:53)
[2022-06-17] MEDS ORDERED: GUAIFENESIN SUGAR FREE 100 MG/5 ML UDC PO PRN (23:30)
[2022-06-18] VITALS: BP 132/67
[2022-06-18 04:00] VITALS: BP 139/68
[2022-06-18 06:24] LABS: HEMATOCRIT 26.8 % (36.7-47.1); MEAN CORPUSCULAR HEMOGLOBIN 29.4 uug (23.8-33.4); MEAN CORPUSCULAR VOLUME 85.5 fL (73.0-96.2); PLATELET COUNT (AUTO) 228 K/uL (152-348)
[2022-06-18] MEDS: BLOOD SUGAR DIAGNOSTIC 1 EACH STRIP VI SCH ×4 (06:40→21:13)
[2022-06-18 06:44] LABS: CARBON DIOXIDE 23 mmol/L (21-32); CHLORIDE 114 mmol/L (98-107); CREATININE 1.7 mg/dL (0.6-1.3); GLUCOSE 186 mg/dL (74-106); MAGNESIUM 1.8 mg/dL (1.8-2.4); PHOSPHOROUS 4.2 mg/dL (2.5-4.9); POTASSIUM 3.1 mmol/L (3.5-5.1); UREA NITROGEN, BLOOD 57 mg/dL (7-18)
--- NOTE | 2022-06-18 08:00 | NUR ---
rapid afib noted. v/s 151/75 98.2 [id number]. md notified. cardio notified.
[2022-06-18] MEDS: INSULIN REGULAR, HUMAN 300 UNIT/3 ML VIAL SQ PRN ×3 (08:02→17:05)
--- NOTE | 2022-06-18 08:20 | NUR ---
md order metoprolol 50mg once addition to 100mg due at 0900. lopressor 150mg total
[2022-06-18] MEDS: DILTIAZEM HCL CD 180 MG CAP.SR.24H PO SCH ×2 (08:23→21:15)
[2022-06-18] MEDS: DIGOXIN 125 MCG TABLET PO SCH (08:23)
[2022-06-18] MEDS: FERROUS SULFATE 325 MG TABEC PO SCH ×2 (08:23→17:04)
[2022-06-18] MEDS: APIXABAN 5 MG TABLET PO SCH ×2 (08:25→17:05)
[2022-06-18] MEDS: ALLOPURINOL 100 MG TABLET PO SCH (08:25)
[2022-06-18] MEDS: POTASSIUM CHLORIDE 50 ML IV SCH ×3 (08:25→10:29)
[2022-06-18] MEDS ORDERED: METOPROLOL TARTRATE 50 MG TABLET PO ONE ×2 (09:00→09:30)
[2022-06-18] MEDS ORDERED: METOPROLOL TARTRATE 50 MG TABLET PO SCH ×3 (09:00→21:00)
[2022-06-18] MEDS ORDERED: DILTIAZEM HCL CD 240 MG CAP.SR.24H PO SCH (09:00)
[2022-06-18] MEDS ORDERED: POTASSIUM CHLORIDE 20 MEQ TAB.PRT.SR PO ONE ×2 (09:30→11:00)
[2022-06-18] MEDS: IV NS 1000 ML 1,000 ML IV PRN ×2 (10:12→23:59)
[2022-06-18 11:30] VITALS: BP 127/65
[2022-06-18 16:27] VITALS: BP 132/66
[2022-06-18] MEDS: FINASTERIDE 5 MG TABLET PO SCH (17:56)
[2022-06-18 20:00] VITALS: BP 167/51
[2022-06-18] MEDS: BENZOCAINE/MENTH/CETYLPYRD LOZENGE MM PRN (21:10)
[2022-06-18] MEDS: TRAZODONE 50 MG TABLET PO SCH (21:11)
[2022-06-18] MEDS: CEFTRIAXONE 1 G in IV DEXTROSE 5% 50 ML IV SCH (21:11)
[2022-06-18] MEDS: TAMSULOSIN HCL 0.4 MG CAP.SR.24H PO SCH (21:11)
[2022-06-18] MEDS: ATORVASTATIN 20 MG TABLET PO SCH (21:12)
[2022-06-18] MEDS: METOPROLOL TARTRATE 50 MG TABLET PO SCH (21:12)
[2022-06-18] MEDS: INSULIN REGULAR, HUMAN 300 UNITS/3 ML VIAL SQ PRN (21:48)
[2022-06-19 06:21] LABS: HEMATOCRIT 26.4 % (36.7-47.1); MEAN CORPUSCULAR HEMOGLOBIN 29.2 uug (23.8-33.4); MEAN CORPUSCULAR VOLUME 85.7 fL (73.0-96.2); PLATELET COUNT (AUTO) 268 K/uL (152-348)
[2022-06-19 06:39] LABS: CREATININE 1.2 mg/dL (0.6-1.3); POTASSIUM 3.3 mmol/L (3.5-5.1)
--- NOTE | 2022-06-19 07:30 | NUR ---
SHIFT NOTE: PT WAS GIVEN MEDICATION ORDERED NO SIGNS OF DISTRESS NOTED. PT SLEPT THROUGHOUT THE NIGHT NO C/O PAIN VOICED. PT WAS GIVEN 2 UNITS OF REG INSULIN ON FOR HS INSULIN BLOOD SUGAR IS 104 AND AM BLOOD SUGAR IS 140 WAS GIVEN 2 UNITS FOR AM BLOOD SUGAR PT DENIES PAIN WILL ENDORSE TO AM NURSE.
[2022-06-19] MEDS: BLOOD SUGAR DIAGNOSTIC 1 EACH STRIP VI SCH ×4 (07:45→21:48)
[2022-06-19] MEDS ORDERED: POTASSIUM CHLORIDE 20 MEQ TAB.PRT.SR PO ONE (08:00)
[2022-06-19 08:36] VITALS: BP 185/56
[2022-06-19] MEDS: DILTIAZEM HCL CD 180 MG CAP.SR.24H PO SCH ×2 (08:38→21:44)
[2022-06-19] MEDS: FINASTERIDE 5 MG TABLET PO SCH (08:38)
[2022-06-19] MEDS: FERROUS SULFATE 325 MG TABEC PO SCH ×2 (08:38→17:06)
[2022-06-19] MEDS: ALLOPURINOL 100 MG TABLET PO SCH (08:38)
[2022-06-19] MEDS: DIGOXIN 125 MCG TABLET PO SCH (08:38)
[2022-06-19] MEDS: METOPROLOL TARTRATE 50 MG TABLET PO SCH ×2 (08:38→21:44)
[2022-06-19] MEDS: APIXABAN 5 MG TABLET PO SCH ×2 (08:39→17:09)
--- NOTE | 2022-06-19 09:33 | NUR ---
called floor, asked for RN in charge of pt but unavailable, RN to call back radiology per Nicol
[2022-06-19] MEDS ORDERED: IOHEXOL 300MG/ML 100 ML INFUS..BTL ONE (10:24)
[2022-06-19] MEDS ORDERED: IV NORMAL SALINE 250 ML IV ONE (10:24)
[2022-06-19] MEDS ORDERED: SWABABLE VALVE TRANSFER SET EA MC ONE (10:24)
[2022-06-19 11:45] VITALS: BP 118/66
[2022-06-19] MEDS: IV NS 1000 ML 1,000 ML IV PRN (12:30)
[2022-06-19] MEDS: INSULIN REGULAR, HUMAN 300 UNIT/3 ML VIAL SQ PRN ×2 (13:00→17:10)
--- NOTE | 2022-06-19 13:00 | NUR ---
notified md regarding the result of ct scan. nno given
[2022-06-19 16:03] VITALS: BP 107/56
--- NOTE | 2022-06-19 18:00 | NUR ---
pt is awake and oriented. no acute distress noted. specialty mattress in placed. wound treatment done. fc intact and draining. urine color getting better. no sign of bleeding noted
[2022-06-19 20:00] VITALS: BP 121/55
[2022-06-19] MEDS: CEFTRIAXONE 1 G in IV DEXTROSE 5% 50 ML IV SCH (21:40)
[2022-06-19] MEDS: ATORVASTATIN 20 MG TABLET PO SCH (21:41)
[2022-06-19] MEDS: TRAZODONE 50 MG TABLET PO SCH (21:41)
[2022-06-19] MEDS: TAMSULOSIN HCL 0.4 MG CAP.SR.24H PO SCH (21:41)
[2022-06-19] MEDS: BENZOCAINE/MENTH/CETYLPYRD LOZENGE MM PRN (21:41)
[2022-06-19] MEDS: INSULIN REGULAR, HUMAN 300 UNITS/3 ML VIAL SQ PRN (21:50)
[2022-06-20 04:34] VITALS: BP 125/60
[2022-06-20] MEDS: BLOOD SUGAR DIAGNOSTIC 1 EACH STRIP VI SCH ×4 (06:15→20:13)
[2022-06-20 06:46] LABS: HEMATOCRIT 27.1 % (36.7-47.1); MEAN CORPUSCULAR HEMOGLOBIN 29.2 uug (23.8-33.4); PLATELET COUNT (AUTO) 280 K/uL (152-348)
[2022-06-20 06:56] LABS: CREATININE 1.1 mg/dL (0.6-1.3); POTASSIUM 3.3 mmol/L (3.5-5.1)
--- NOTE | 2022-06-20 08:00 | NUR ---
POTASSIUM LEVEL IS 3.3 WITH NEW ORDERS TO REPLACE AND NOTED.
[2022-06-20] MEDS: INSULIN REGULAR, HUMAN 300 UNIT/3 ML VIAL SQ PRN ×2 (08:44→11:44)
[2022-06-20] MEDS: POTASSIUM CHLORIDE 50 ML IV SCH ×4 (08:51→12:48)
[2022-06-20] MEDS: FINASTERIDE 5 MG TABLET PO SCH (08:52)
[2022-06-20] MEDS: ALLOPURINOL 100 MG TABLET PO SCH (08:52)
[2022-06-20] MEDS: FERROUS SULFATE 325 MG TABEC PO SCH ×2 (08:52→17:03)
[2022-06-20] MEDS: DIGOXIN 125 MCG TABLET PO SCH (08:52)
[2022-06-20] MEDS: DILTIAZEM HCL CD 180 MG CAP.SR.24H PO SCH ×2 (08:53→20:14)
[2022-06-20] MEDS: METOPROLOL TARTRATE 50 MG TABLET PO SCH ×2 (08:53→20:15)
[2022-06-20] MEDS: APIXABAN 5 MG TABLET PO SCH (08:54)
--- NOTE | 2022-06-20 09:00 | NUR ---
PATIENT SEEN BY THE PHYSICAL THERAPY AND HE WAS ABLE TO WALK WITH THE FRONT WHEEL WALKER IN THE HALLWAY WITH FAIR ENDURANCE AT THIS TIME.
--- NOTE | 2022-06-20 09:30 | NUR ---
SEEN BY DR SOUSA WITH ORDER TO DISCONTINUE TELEMETRY TODAY AND NOTED PATIENT IS AWAKE ALERT AND ORIENTED HE IS SOMEWHAT FORGETFUL REMAIN ON IVF ORDERED AT THIS TIME WITH NO S/S OF INFILTERATION ON SITE.TELE IS AFIB CONTROLLED.POTTER CATH WITH HOANG COLORED URINE WITH NO HEMATURIA AT THIS TIME CALL LIGHTS AND PERSOANL BELONGINGS ARE WITHIN EASY REACH WILL CONTINUE TO OBSERVE.
[2022-06-20 11:54] VITALS: BP 127/73
[2022-06-20] MEDS: GLUCERNA SHAKE 237 ML CAN PO SCH (14:15)
[2022-06-20] MEDS: PROTEIN SUPPLEMENT (PROSTAT) 30 ML LIQUID PO SCH ×2 (14:15→17:04)
--- NOTE | 2022-06-20 15:10 | NUR ---
DR CLAUDIO FORM LAYER BETH HERE TO SEE PATIENT AND EXPLAINED TO THE PATIENT THE NEXT PLAN OF CARE BUT I ENCOURAGED HER TO CALL THE PATIENTS AND PATIENT TENDS TO FORGET.
[2022-06-20 16:09] VITALS: BP 133/51
[2022-06-20] MEDS: ARGININE/GLUTAMINE/CALCIUM BMB 1 EACH POWD.PACK PO SCH (17:06)
--- NOTE | 2022-06-20 18:00 | NUR ---
RESTING PLAN IS FOR MRI OF ABDOMEN WITH CONTRAST AND CT CHEST WITH NO CONTRAST NOT IN DISTRESS AT THIS TIME WILL CONTINUE TO OBSERVE.
[2022-06-20 18:02] LABS: THYROID STIMULATING HORMONE 2.025 mIU/mL (0.358-3.740)
[2022-06-20] MEDS: CEFTRIAXONE 1 G in IV DEXTROSE 5% 50 ML IV SCH (20:00)
[2022-06-20] MEDS: TAMSULOSIN HCL 0.4 MG CAP.SR.24H PO SCH (20:13)
[2022-06-20] MEDS: ATORVASTATIN 20 MG TABLET PO SCH (20:13)
[2022-06-20] MEDS: INSULIN REGULAR, HUMAN 300 UNITS/3 ML VIAL SQ PRN (20:14)
[2022-06-20] MEDS: TRAZODONE 50 MG TABLET PO SCH (20:19)
[2022-06-20 20:44] VITALS: BP 121/58
[2022-06-21 05:05] VITALS: BP 127/51
[2022-06-21] MEDS: BLOOD SUGAR DIAGNOSTIC 1 EACH STRIP VI SCH ×4 (06:29→21:55)
[2022-06-21 07:31] LABS: HEMATOCRIT 31.6 % (36.7-47.1); MEAN CORPUSCULAR HEMOGLOBIN 29.1 uug (23.8-33.4); MEAN CORPUSCULAR VOLUME 84.7 fL (73.0-96.2); PLATELET COUNT (AUTO) 360 K/uL (152-348)
[2022-06-21 07:38] LABS: POTASSIUM 3.9 mmol/L (3.5-5.1)
[2022-06-21 08:06] LABS: *IMMUNOGLOBULIN G, SERUM 743 mg/dL (603-1613)
[2022-06-21] MEDS: DILTIAZEM HCL CD 180 MG CAP.SR.24H PO SCH ×2 (08:58→21:52)
[2022-06-21] MEDS: PROTEIN SUPPLEMENT (PROSTAT) 30 ML LIQUID PO SCH (08:58)
[2022-06-21] MEDS: BENZOCAINE/MENTH/CETYLPYRD LOZENGE MM PRN (08:58)
[2022-06-21] MEDS: GLUCERNA SHAKE 237 ML CAN PO SCH (08:58)
[2022-06-21] MEDS: ARGININE/GLUTAMINE/CALCIUM BMB 1 EACH POWD.PACK PO SCH ×2 (08:58→17:00)
[2022-06-21] MEDS: ALLOPURINOL 100 MG TABLET PO SCH (08:59)
[2022-06-21] MEDS: DIGOXIN 125 MCG TABLET PO SCH (08:59)
[2022-06-21] MEDS: FERROUS SULFATE 325 MG TABEC PO SCH ×2 (08:59→18:35)
[2022-06-21] MEDS: METOPROLOL TARTRATE 50 MG TABLET PO SCH ×2 (08:59→21:55)
[2022-06-21] MEDS: FINASTERIDE 5 MG TABLET PO SCH (08:59)
[2022-06-21 09:06] LABS: A/G RATIO 0.7 (0.7-1.7); ALBUMIN 2.1 g/dL (2.9-4.4); ALPHA-1-GLOBULIN 0.3 g/dL (0.0-0.4); ALPHA-2-GLOBULIN 0.8 g/dL (0.4-1.0); BETA GLOBULIN 1.1 g/dL (0.7-1.3); GAMMA GLOBULIN 0.7 g/dL (0.4-1.8); GLOBULIN, TOTAL 2.9 g/dL (2.2-3.9); M-SPIKE Not Observed g/dL (Not Observed)
[2022-06-21] MEDS: INSULIN REGULAR, HUMAN 300 UNIT/3 ML VIAL SQ PRN ×3 (09:43→18:35)
--- NOTE | 2022-06-21 10:46 | NUR ---
WOUND CARE CONSULT: PT PRESENTS WITH SACRAL DEEP TISSUE INJURY IN EVOLUTION, PRESENT ON ADMISSION. RECOMMENDATIONS MADE FOR SKIN PROTECTION AND WOUND CARE. DISCUSSED WITH NURSING STAFF. IN AGREEMENT WITH PLAN OF CARE. PT IS ON FIRST STEP [facility]. Addendum: 06/21/22 at 1047 by LACEY STEEN RN Amended: Links added.
[2022-06-21 12:00] VITALS: BP 128/56
[2022-06-21 12:06] LABS: CARBOHYDRATE ANTIGEN, 19-9 16 U/mL (0-35)
[2022-06-21 16:00] VITALS: BP 123/63
[2022-06-21] MEDS ORDERED: IOHEXOL 350 100 ML INFUS..BTL ONE (17:21)
[2022-06-21] MEDS ORDERED: IV NORMAL SALINE 250 ML IV ONE (17:21)
[2022-06-21] MEDS ORDERED: SWABABLE VALVE TRANSFER SET EA MC ONE (17:21)
[2022-06-21 20:00] VITALS: BP_SYST 131; BP_SYST 140; BP_DIAS 56; BP_DIAS 62
[2022-06-21] MEDS: CEFTRIAXONE 1 G in IV DEXTROSE 5% 50 ML IV SCH (20:00)
[2022-06-21] MEDS: ATORVASTATIN 20 MG TABLET PO SCH (21:52)
[2022-06-21] MEDS: TAMSULOSIN HCL 0.4 MG CAP.SR.24H PO SCH (21:52)
[2022-06-21] MEDS: TRAZODONE 50 MG TABLET PO SCH (21:52)
[2022-06-21] MEDS: INSULIN REGULAR, HUMAN 300 UNITS/3 ML VIAL SQ PRN (23:57)
[2022-06-22 04:08] VITALS: BP 114/55
[2022-06-22] MEDS: BLOOD SUGAR DIAGNOSTIC 1 EACH STRIP VI SCH ×4 (07:36→21:49)
--- NOTE | 2022-06-22 07:54 | NUR ---
SHIFT NOTED; PT IS ALERT AND ORIENTED X4 PT DENIES PAIN NO SIGNS OF RESPIRATORY DISTRESS NOTED. PT WAS GIVEN MEDICATION ORDERED TOLERATED WELL NO SIGNS OF ADVERSE REACTION NOTED. WILL CONTINUE TO MONITOR.
--- NOTE | 2022-06-22 07:56 | NUR ---
SHIFT NOTE; PT HS BLOOD SUGAR 199 GAVE 3 UNIT OF R AND AM BLOOD SUGAR 145 NO SIGNS OF DIABETIC REACTION NOTED WILL ENDORSE TO AM NURSE.
[2022-06-22] MEDS: PROTEIN SUPPLEMENT (PROSTAT) 30 ML LIQUID PO SCH (08:00)
[2022-06-22 08:10] LABS: HEMATOCRIT 31.6 % (36.7-47.1); MEAN CORPUSCULAR HEMOGLOBIN 29.8 uug (23.8-33.4); MEAN CORPUSCULAR VOLUME 84.9 fL (73.0-96.2); PLATELET COUNT (AUTO) 363 K/uL (152-348)
[2022-06-22 08:52] LABS: CREATININE 1.1 mg/dL (0.6-1.3); MAGNESIUM 1.7 mg/dL (1.8-2.4); PHOSPHOROUS 3.2 mg/dL (2.5-4.9); POTASSIUM 3.3 mmol/L (3.5-5.1)
[2022-06-22] MEDS: ARGININE/GLUTAMINE/CALCIUM BMB 1 EACH POWD.PACK PO SCH ×2 (09:16→17:13)
[2022-06-22] MEDS: FINASTERIDE 5 MG TABLET PO SCH (09:22)
[2022-06-22] MEDS: BENZOCAINE/MENTH/CETYLPYRD LOZENGE MM PRN (09:22)
[2022-06-22] MEDS: GLUCERNA SHAKE 237 ML CAN PO SCH (09:23)
[2022-06-22] MEDS: FERROUS SULFATE 325 MG TABEC PO SCH ×2 (09:23→17:00)
[2022-06-22] MEDS: ALLOPURINOL 100 MG TABLET PO SCH (09:23)
[2022-06-22] MEDS: DILTIAZEM HCL CD 180 MG CAP.SR.24H PO SCH ×2 (09:27→21:53)
[2022-06-22] MEDS: DIGOXIN 125 MCG TABLET PO SCH (09:27)
[2022-06-22] MEDS: METOPROLOL TARTRATE 50 MG TABLET PO SCH ×2 (09:28→21:45)
[2022-06-22] MEDS: POTASSIUM CHLORIDE 50 ML IV SCH ×4 (09:51→13:11)
[2022-06-22] MEDS: MAGNESIUM SULFATE/D5W 100 ML IV SCH ×2 (11:04→11:42)
[2022-06-22] MEDS: APIXABAN 5 MG TABLET PO SCH ×2 (11:06→21:49)
--- NOTE | 2022-06-22 11:12 | NUR ---
pt aox4. no complain of pain. pt eval done. pt is ambulatory with assist. md order us thyroid result still pending; if clear pt will be d/c.
[2022-06-22] MEDS: INSULIN REGULAR, HUMAN 300 UNIT/3 ML VIAL SQ PRN ×3 (11:58→21:51)
[2022-06-22 12:00] VITALS: BP 123/69
[2022-06-22 12:06] LABS: IMMUNOGLOBULIN M, SERUM 61 mg/dL (15-143)
--- NOTE | 2022-06-22 13:34 | NUR ---
WOUND TREATMENT DONE; CLEAN WITH NS; APPLY OIL EMULSION DSG; COVER WITH FOAM DRESSING
[2022-06-22 16:00] VITALS: BP 111/46
[2022-06-22 20:17] VITALS: BP 130/52
[2022-06-22] MEDS: ATORVASTATIN 20 MG TABLET PO SCH (21:45)
[2022-06-22] MEDS: TAMSULOSIN HCL 0.4 MG CAP.SR.24H PO SCH (21:45)
[2022-06-22] MEDS: TRAZODONE 50 MG TABLET PO SCH (21:53)
[2022-06-23] MEDS: FINASTERIDE 5 MG TABLET PO SCH (02:51)
[2022-06-23 04:00] VITALS: BP 126/48
[2022-06-23] MEDS: BLOOD SUGAR DIAGNOSTIC 1 EACH STRIP VI SCH ×4 (07:56→21:00)
[2022-06-23] MEDS: INSULIN REGULAR, HUMAN 300 UNIT/3 ML VIAL SQ PRN ×3 (07:57→16:38)
--- NOTE | 2022-06-23 07:57 | NUR ---
Shift Note: RECEIVED REPORT FROM AM NURSE PT IS ALERT AND ORIENTED X4 PT WAS MEDICATION ORDERED NO SIGNS OF ADVERSE REACTION ALSO PT AM BLOOD SUGAR HS BLOOD SUGAR IS 193 GAVE 3 UNITS OF R AND AM BLOOD SUGAR IS 145 AND NO SIGNS OF DIABETIC NOTED. WILL CONTINUE TO MONITOR FOR FALL AND SAFETY ENDORSE TO AM NURSE.
[2022-06-23] MEDS: METOPROLOL TARTRATE 50 MG TABLET PO SCH ×2 (08:04→20:50)
[2022-06-23] MEDS: ARGININE/GLUTAMINE/CALCIUM BMB 1 EACH POWD.PACK PO SCH ×2 (08:04→16:37)
[2022-06-23] MEDS: ALLOPURINOL 100 MG TABLET PO SCH (08:04)
[2022-06-23] MEDS: DILTIAZEM HCL CD 180 MG CAP.SR.24H PO SCH ×2 (08:04→20:50)
[2022-06-23] MEDS: DIGOXIN 125 MCG TABLET PO SCH (08:04)
[2022-06-23] MEDS: FERROUS SULFATE 325 MG TABEC PO SCH ×2 (08:04→16:37)
[2022-06-23] MEDS: GLUCERNA SHAKE 237 ML CAN PO SCH (08:05)
[2022-06-23] MEDS: PROTEIN SUPPLEMENT (PROSTAT) 30 ML LIQUID PO SCH (08:05)
[2022-06-23] MEDS: APIXABAN 5 MG TABLET PO SCH ×2 (08:05→20:59)
[2022-06-23 12:09] VITALS: BP 118/52
[2022-06-23 15:52] VITALS: BP 113/59
[2022-06-23 20:00] VITALS: BP 116/60
[2022-06-23] MEDS: TRAZODONE 50 MG TABLET PO SCH (20:50)
[2022-06-23] MEDS: TAMSULOSIN HCL 0.4 MG CAP.SR.24H PO SCH (20:50)
[2022-06-23] MEDS: ATORVASTATIN 20 MG TABLET PO SCH (20:50)
[2022-06-23] MEDS: INSULIN REGULAR, HUMAN 300 UNITS/3 ML VIAL SQ PRN (23:20)
--- NOTE | 2022-06-24 01:19 | NUR ---
RECEIVED REPORT FROM AM NURSE PT SITTING UP IN BED PT IS NPO AFTER MIDNIGHT . PT HS BLOOD SUGAR IS 155 PT WAS GIVEN 2 UNITS OF HUMULIN R NO SIGNS OF DIABETIC REACTION NOTED. WILL CONTINUE TO MONITOR FOR SAFETY
[2022-06-24 04:00] VITALS: BP 118/55
[2022-06-24] MEDS: BLOOD SUGAR DIAGNOSTIC 1 EACH STRIP VI SCH ×4 (06:40→20:41)
[2022-06-24] MEDS: DIGOXIN 125 MCG TABLET PO SCH (08:00)
[2022-06-24] MEDS: ALLOPURINOL 100 MG TABLET PO SCH (08:00)
[2022-06-24] MEDS: FINASTERIDE 5 MG TABLET PO SCH (08:00)
[2022-06-24] MEDS: FERROUS SULFATE 325 MG TABEC PO SCH ×2 (08:00→16:05)
[2022-06-24] MEDS: GLUCERNA SHAKE 237 ML CAN PO SCH (08:01)
[2022-06-24] MEDS: DILTIAZEM HCL CD 180 MG CAP.SR.24H PO SCH ×2 (08:01→20:43)
[2022-06-24] MEDS: PROTEIN SUPPLEMENT (PROSTAT) 30 ML LIQUID PO SCH (08:01)
[2022-06-24] MEDS: METOPROLOL TARTRATE 50 MG TABLET PO SCH ×2 (08:01→20:42)
[2022-06-24] MEDS: ARGININE/GLUTAMINE/CALCIUM BMB 1 EACH POWD.PACK PO SCH ×2 (08:01→16:05)
[2022-06-24] MEDS: INSULIN REGULAR, HUMAN 300 UNIT/3 ML VIAL SQ PRN (11:58)
[2022-06-24 12:00] VITALS: BP 107/49
[2022-06-24 16:00] VITALS: BP 148/61
[2022-06-24 20:00] VITALS: BP 134/69
[2022-06-24] MEDS: TRAZODONE 50 MG TABLET PO SCH (20:43)
[2022-06-24] MEDS: TAMSULOSIN HCL 0.4 MG CAP.SR.24H PO SCH (20:43)
[2022-06-24] MEDS: ATORVASTATIN 20 MG TABLET PO SCH (20:47)
[2022-06-24] MEDS: INSULIN REGULAR, HUMAN 300 UNITS/3 ML VIAL SQ PRN (21:02)
[2022-06-25 04:00] VITALS: BP 127/64
[2022-06-25] MEDS: BLOOD SUGAR DIAGNOSTIC 1 EACH STRIP VI SCH ×4 (06:23→20:48)
[2022-06-25] MEDS: INSULIN REGULAR, HUMAN 300 UNIT/3 ML VIAL SQ PRN ×4 (08:31→20:51)
[2022-06-25] MEDS: PROTEIN SUPPLEMENT (PROSTAT) 30 ML LIQUID PO SCH (08:31)
[2022-06-25] MEDS: GLUCERNA SHAKE 237 ML CAN PO SCH (08:32)
[2022-06-25] MEDS: ARGININE/GLUTAMINE/CALCIUM BMB 1 EACH POWD.PACK PO SCH ×2 (08:32→16:57)
[2022-06-25] MEDS: FERROUS SULFATE 325 MG TABEC PO SCH ×2 (08:56→16:57)
[2022-06-25] MEDS: ALLOPURINOL 100 MG TABLET PO SCH (08:57)
[2022-06-25] MEDS: DIGOXIN 125 MCG TABLET PO SCH (08:57)
[2022-06-25] MEDS: FINASTERIDE 5 MG TABLET PO SCH (08:57)
[2022-06-25] MEDS: DILTIAZEM HCL CD 180 MG CAP.SR.24H PO SCH ×2 (08:57→20:38)
[2022-06-25] MEDS: METOPROLOL TARTRATE 50 MG TABLET PO SCH ×2 (08:58→20:39)
[2022-06-25] MEDS ORDERED: DIGO125T PO (09:43)
[2022-06-25] MEDS ORDERED: APIX5TAB PO ×2 (09:43→10:01)
[2022-06-25] MEDS ORDERED: METO100T14 PO (09:43)
[2022-06-25] MEDS ORDERED: FERR325T28 PO (09:43)
[2022-06-25] MEDS ORDERED: FINA5TAB11 PO (09:43)
[2022-06-25] MEDS ORDERED: DILT180C66 PO (09:43)
[2022-06-25 12:35] VITALS: BP 109/55
[2022-06-25 15:51] VITALS: BP 102/61
--- NOTE | 2022-06-25 16:19 | NUR ---
patient is alert oriented x4, no sob, respiration are even nonlabored,skin warm and dry to touch, patient teaching provided regarding catheter care at home, demonstrated with leg bag, patient demonstrated how to change from long catheter bag to leg bag and vise verse, upon patient request.
[2022-06-25 20:09] VITALS: BP 121/55
[2022-06-25] MEDS: ATORVASTATIN 20 MG TABLET PO SCH (20:33)
[2022-06-25] MEDS: TRAZODONE 50 MG TABLET PO SCH (20:39)
[2022-06-25] MEDS: TAMSULOSIN HCL 0.4 MG CAP.SR.24H PO SCH (20:39)
[2022-06-26 04:00] VITALS: BP 113/61
[2022-06-26] MEDS: BLOOD SUGAR DIAGNOSTIC 1 EACH STRIP VI SCH ×4 (06:38→20:29)
[2022-06-26] MEDS: DILTIAZEM HCL CD 180 MG CAP.SR.24H PO SCH ×2 (08:16→20:25)
[2022-06-26] MEDS: FINASTERIDE 5 MG TABLET PO SCH (08:16)
[2022-06-26] MEDS: FERROUS SULFATE 325 MG TABEC PO SCH ×2 (08:16→17:23)
[2022-06-26] MEDS: DIGOXIN 125 MCG TABLET PO SCH (08:16)
[2022-06-26] MEDS: ALLOPURINOL 100 MG TABLET PO SCH (08:17)
[2022-06-26] MEDS: PROTEIN SUPPLEMENT (PROSTAT) 30 ML LIQUID PO SCH (08:17)
[2022-06-26] MEDS: ARGININE/GLUTAMINE/CALCIUM BMB 1 EACH POWD.PACK PO SCH ×2 (08:17→17:23)
[2022-06-26] MEDS: GLUCERNA SHAKE 237 ML CAN PO SCH (08:17)
[2022-06-26] MEDS: METOPROLOL TARTRATE 50 MG TABLET PO SCH ×2 (08:18→20:24)
[2022-06-26] MEDS: INSULIN REGULAR, HUMAN 300 UNIT/3 ML VIAL SQ PRN (11:32)
[2022-06-26 12:04] VITALS: BP 100/48
[2022-06-26 15:54] VITALS: BP 116/55
--- NOTE | 2022-06-26 18:28 | NUR ---
no events noted during shift
[2022-06-26 20:00] VITALS: BP 125/54
[2022-06-26] MEDS: ATORVASTATIN 20 MG TABLET PO SCH (20:24)
[2022-06-26] MEDS: TRAZODONE 50 MG TABLET PO SCH (20:24)
[2022-06-26] MEDS: TAMSULOSIN HCL 0.4 MG CAP.SR.24H PO SCH (20:25)
[2022-06-26] MEDS: INSULIN REGULAR, HUMAN 300 UNITS/3 ML VIAL SQ PRN (20:32)
[2022-06-27 04:00] VITALS: BP 121/60
[2022-06-27] MEDS: BLOOD SUGAR DIAGNOSTIC 1 EACH STRIP VI SCH ×4 (06:53→21:03)
[2022-06-27] MEDS: DIGOXIN 125 MCG TABLET PO SCH (09:43)
[2022-06-27] MEDS: FERROUS SULFATE 325 MG TABEC PO SCH ×2 (09:43→16:38)
[2022-06-27] MEDS: FINASTERIDE 5 MG TABLET PO SCH (09:43)
[2022-06-27] MEDS: ALLOPURINOL 100 MG TABLET PO SCH (09:43)
[2022-06-27] MEDS: GLUCERNA SHAKE 237 ML CAN PO SCH (09:44)
[2022-06-27] MEDS: DILTIAZEM HCL CD 180 MG CAP.SR.24H PO SCH ×2 (09:44→21:03)
[2022-06-27] MEDS: PROTEIN SUPPLEMENT (PROSTAT) 30 ML LIQUID PO SCH (09:44)
[2022-06-27] MEDS: ARGININE/GLUTAMINE/CALCIUM BMB 1 EACH POWD.PACK PO SCH ×2 (09:44→16:38)
[2022-06-27] MEDS: METOPROLOL TARTRATE 50 MG TABLET PO SCH ×2 (09:45→21:02)
[2022-06-27] MEDS: BENZOCAINE/MENTH/CETYLPYRD LOZENGE MM PRN (09:45)
[2022-06-27 11:31] VITALS: BP 124/61
[2022-06-27] MEDS: INSULIN REGULAR, HUMAN 300 UNIT/3 ML VIAL SQ PRN (12:20)
[2022-06-27 16:00] VITALS: BP 114/54
--- NOTE | 2022-06-27 16:00 | NUR ---
Per Catherine pt will be set up for SNF under help of pt's insurance for tomorrow.
[2022-06-27 20:00] VITALS: BP 125/58
[2022-06-27] MEDS: TRAZODONE 50 MG TABLET PO SCH (21:02)
[2022-06-27] MEDS: TAMSULOSIN HCL 0.4 MG CAP.SR.24H PO SCH (21:02)
[2022-06-27] MEDS: ATORVASTATIN 20 MG TABLET PO SCH (21:02)
[2022-06-27] MEDS: INSULIN REGULAR, HUMAN 300 UNITS/3 ML VIAL SQ PRN (21:10)
[2022-06-28 04:00] VITALS: BP 130/66
[2022-06-28] MEDS: BLOOD SUGAR DIAGNOSTIC 1 EACH STRIP VI SCH ×3 (06:37→16:24)
[2022-06-28] MEDS ORDERED: APIXABAN 5 MG TABLET PO SCH (09:00)
[2022-06-28] MEDS: BENZOCAINE/MENTH/CETYLPYRD LOZENGE MM PRN (09:50)
[2022-06-28] MEDS: FERROUS SULFATE 325 MG TABEC PO SCH ×2 (09:51→16:24)
[2022-06-28] MEDS: DILTIAZEM HCL CD 180 MG CAP.SR.24H PO SCH (09:52)
[2022-06-28] MEDS: FINASTERIDE 5 MG TABLET PO SCH (09:53)
[2022-06-28] MEDS: DIGOXIN 125 MCG TABLET PO SCH (09:53)
[2022-06-28] MEDS: METOPROLOL TARTRATE 50 MG TABLET PO SCH (09:53)
[2022-06-28] MEDS: ARGININE/GLUTAMINE/CALCIUM BMB 1 EACH POWD.PACK PO SCH (09:58)
[2022-06-28] MEDS: GLUCERNA SHAKE 237 ML CAN PO SCH (09:59)
[2022-06-28] MEDS: PROTEIN SUPPLEMENT (PROSTAT) 30 ML LIQUID PO SCH (09:59)
[2022-06-28] MEDS: ALLOPURINOL 100 MG TABLET PO SCH (10:00)
[2022-06-28 11:30] VITALS: BP 111/60
[2022-06-28] MEDS: INSULIN REGULAR, HUMAN 300 UNIT/3 ML VIAL SQ PRN (13:15)
[2022-06-28 15:30] VITALS: BP 115/54
--- NOTE | 2022-06-28 17:00 | NUR ---
Discharge instructions given to patient. [facility] denies any c/o pain. updated pictures taken. Pt is in no acute distress.
== END 2022-06-28 17:00 | DRG 871 ==
LOC: ER 13:47 → TELE3 19:02 → MEDSURG3 06-20 09:27
PROVIDERS: ADMIT Internal Medicine; ATTEND Internal Medicine
PROC: 0G9G3ZX Drainage of Left Thyroid Gland Lobe, Percutaneous Approach, Diagnostic (ICD-10-PCS; principal; 2022-06-24)
DX: A41.9 Sepsis, unspecified organism (principal); E43 Unspecified severe protein-calorie malnutrition; N17.0 Acute kidney failure with tubular necrosis; G92.8 Other toxic encephalopathy; N13.8 Other obstructive and reflux uropathy; C64.2 Malignant neoplasm of left kidney, except renal pelvis; I48.20 Chronic atrial fibrillation, unspecified; N39.0 Urinary tract infection, site not specified; E87.0 Hyperosmolality and hypernatremia; K86.2 Cyst of pancreas; Q24.0 Dextrocardia; J90 Pleural effusion, not elsewhere classified; N40.1 Benign prostatic hyperplasia with lower urinary tract symptoms; E83.42 Hypomagnesemia; E78.5 Hyperlipidemia, unspecified; I10 Essential (primary) hypertension; Z20.822 Contact with and (suspected) exposure to COVID-19; Z85.820 Personal history of malignant melanoma of skin; Z86.16 Personal history of COVID-19; Z95.0 Presence of cardiac pacemaker; Z87.440 Personal history of urinary (tract) infections; Z79.01 Long term (current) use of anticoagulants; D50.0 Iron deficiency anemia secondary to blood loss (chronic); E86.1 Hypovolemia; E87.6 Hypokalemia; E11.9 Type 2 diabetes mellitus without complications; E88.09 Other disorders of plasma-protein metabolism, not elsewhere classified; Z68.24 Body mass index [BMI] 24.0-24.9, adult; R53.1 Weakness; N32.3 Diverticulum of bladder; E04.1 Nontoxic single thyroid nodule; Z79.84 Long term (current) use of oral hypoglycemic drugs; Z85.038 Personal history of other malignant neoplasm of large intestine; Z90.49 Acquired absence of other specified parts of digestive tract; R33.8 Other retention of urine; K80.20 Calculus of gallbladder without cholecystitis without obstruction
CPT/HCPCS: 36415; 71045; 71250; 76770; 76942; 82378; 82784; 83550; 83605; 83615; 83735; 84100; 84153; 84155; 84165; 84443; 84484; 85025; 85730; 86301; 86334; 87040; 87086; 93005; 97161; A4663; A6209; A6213; G0378; J0696; J1815; J2543; J3370; J3475; J3480; J7040; J7120; J8499; Q9967